=== PATIENT | female | born 1965 | race Caucasian/White ===

== ENCOUNTER 2023-12-01 04:44 | Day surgery (SDC) | payer OTHER ==
[2023-11-28 13:51] VITALS: BMI 30.1
[2023-12-01 10:16] VITALS: TEMP 98.3
[2023-12-01 11:07] VITALS: BP 112/52; PULSE 60; RESP 17
== END 2023-12-01 11:00 | disposition home or self-care (01) ==
LOC: JASU-ENDO 04:44
PROVIDERS: ATTEND Internal Medicine Gastroenterology
PROC: 0DBH8ZX Excision of Cecum, Via Natural or Artificial Opening Endoscopic, Diagnostic (ICD-10-PCS; principal; 2023-12-01 09:45)
DX: Z12.11 Encounter for screening for malignant neoplasm of colon (principal); D12.0 Benign neoplasm of cecum; K57.30 Diverticulosis of large intestine without perforation or abscess without bleeding
CPT/HCPCS: 88305-TC